=== PATIENT | male | born 1970 | race Caucasian/White ===

== ENCOUNTER → 2016-06-09 | Outpatient (CLI) | payer OTHER | END | disposition home or self-care (01) | LOC: RAD 14:03 | DX: R05 Cough (principal) ==

== ENCOUNTER 2016-07-30 19:40 | Emergency (ER) | payer OTHER ==
[~2016-07-30] VITALS: Ht 175.2 cm; Wt 90.7 kg
[2016-07-30] MEDS ORDERED: METFORMIN1000 MG PO (19:47)
[2016-07-30] MEDS ORDERED: GLIPIZIDE10 M2 PO (19:48)
[2016-07-30] MEDS ORDERED: CRESTOR10 M1 PO (19:48)
[2016-07-30] MEDS ORDERED: GENTAMYCIN3 MG/ML OP (20:32)
== END 2016-07-30 20:36 | disposition home or self-care (01) ==
LOC: ED 19:40
DX: T15.92XA Foreign body on external eye, part unspecified, left eye, initial encounter (principal); Z98.890 Other specified postprocedural states; Z79.899 Other long term (current) drug therapy; X58.XXXA Exposure to other specified factors, initial encounter; Y93.89 Activity, other specified; Y92.89 Other specified places as the place of occurrence of the external cause; Y99.9 Unspecified external cause status

== ENCOUNTER → 2019-04-11 | Outpatient (CLI) | payer OTHER ==
[~2019-04-11] MED LIST: CRESTOR10 M1 PO; GENTAMYCIN3 MG/ML OP; GLIPIZIDE10 M2 PO; METFORMIN1000 MG PO
== END | disposition home or self-care (01) ==
LOC: RAD 14:47
DX: M47.816 Spondylosis without myelopathy or radiculopathy, lumbar region (principal); M54.42 Lumbago with sciatica, left side

== ENCOUNTER → 2019-04-19 | Outpatient (CLI) | payer OTHER | END | disposition home or self-care (01) | LOC: MRI 08:45 | DX: M51.36 Other intervertebral disc degeneration, lumbar region (principal); M51.86 Other intervertebral disc disorders, lumbar region ==

== ENCOUNTER → 2019-11-28 | Outpatient (CLI) | payer OTHER | END | disposition home or self-care (01) | LOC: RAD 13:21 | PROVIDERS: ATTEND Specialist | DX: M77.9 Enthesopathy, unspecified (principal); M25.561 Pain in right knee; M25.562 Pain in left knee; M25.551 Pain in right hip; M25.552 Pain in left hip; M25.541 Pain in joints of right hand; M25.542 Pain in joints of left hand ==

== ENCOUNTER 2021-06-02 17:51 | Emergency (ER) | payer OTHER ==
[2021-06-02] MEDS ORDERED: LISINOPRIL2.5 MG PO (18:14)
[2021-06-02] MEDS ORDERED: OMEPRAZOLE MAGN20 MG PO (18:14)
[2021-06-02] MEDS ORDERED: SYNJARDY (18:15)
[2021-06-02] MEDS ORDERED: OZEMPIC0.25 MG/01 SQ (18:15)
[2021-06-02] MEDS ORDERED: PREGABALIN150 MG PO (18:16)
[2021-06-02] MEDS ORDERED: METOPROLOL SUCC25 M2 PO (18:16)
[2021-06-02] MEDS ORDERED: OMEGA-3-ACID ETH1 GM PO (18:16)
[2021-06-02] MEDS ORDERED: VITAMIN D325 MCG PO (18:17)
[2021-06-02] MEDS ORDERED: ASPIRIN ADULT L81 M2 PO (18:17)
[2021-06-02] MEDS ORDERED: ZYRTEC10 M3 PO (18:29)
[2021-06-02] MEDS ORDERED: FLONASE ALLERG9.9 ML NAS (18:29)
== END 2021-06-02 18:33 | disposition home or self-care (01) ==
LOC: ED 17:51
DX: H92.01 Otalgia, right ear (principal); Z79.899 Other long term (current) drug therapy; Z79.82 Long term (current) use of aspirin